=== PATIENT | male | born 1995 | race Caucasian/White ===

== ENCOUNTER 2021-05-04 02:08 | Emergency (ER) | payer OTHER ==
[2021-05-04] MEDS ORDERED: BUPIVACAINE 0.5% PF 10 ML VIAL SUBQ STA (02:42)
--- NOTE | 2021-05-04 03:14 | ED Physician Documentation ---
PD HPI UPPER EXT INJURY - Stated complaint Stated Complaint: RT HAND INJURY - Chief complaint Chief Complaint: Trauma Ext - History obtained from History obtained from: Patient - Additonal information Additional information: Patient is a 25-year-old male, [id number] presenting with right hand injury. Reports occurred earlier today when he "slipped and fell while skateboarding". Reports pain and swelling along the outer, ulnar aspect of his hand.Denies pain at the wrist. He denies head trauma or loss of consciousness. Review of Systems Ten Systems: 10 systems reviewed and negative Constitutional: denies: Fever Cardiac: denies: Chest pain / pressure GI: denies: Abdominal Pain : denies: Dysuria PD PAST MEDICAL HISTORY - Past Medical History Past Medical History: No - Past Surgical History Past Surgical History: Yes HEENT: Tonsil/Adenoidectomy - Present Medications Home Medications: Ambulatory Orders Medication Instructions Recorded Confirmed Acetaminophen [Tylenol] 650 mg PO Q6H PRN #30 tablet 05/04/21 Ibuprofen [Motrin] 800 mg PO Q8H PRN #30 tablet 05/04/21 Oxycodone HCl [Roxicodone] 5 mg PO Q6HR #10 tablet 05/04/21 - Allergies Allergies/Adverse Reactions: Allergies Allergy/AdvReac Type Severity Reaction Status Date / Time No Known Drug Allergies Allergy Verified 05/04/21 02:17 - Social History Does the pt smoke?: No Smoking Status: Never smoker Does the pt drink ETOH?: No Does the pt have substance abuse?: No - Immunizations Immunizations are current?: Yes - POLST Patient has POLST: No PD ED PE NORMAL - General General: Alert and oriented X 3 - HEENT HEENT: Atraumatic - Neck Neck: No JVD - Derm Derm: Normal color, Warm and dry PD ED PE EXPANDED - Extremities Extremities: Deformity, Tenderness, Swelling, Right hand (Soft tissue swelling o zoey the distal aspect of the fifth metacarpal.) Results - Vitals Vitals: Vital Signs - 24 hr 05/04/21 02:10 Temperature 36.6 C Heart Rate 71 Respiratory 14 Rate Blood Pressure 121/70 O2 Saturation 98 Oxygen O2 Source Room air Procedures - General procedure General procedure: Verbal consent obtained for patient prior to performing hematoma block for fracture to distal fifth metacarpal. Area cleaned with alcohol swab prior to injection of 6 mL of ropivacaine 0.5%. Patient reported significant improvement in pain. PD MEDICAL DECISION MAKING - ED course Complexity details: reviewed results, d/w patient ED course: Patient is 25-year-old male presenting with distal fifth metacarpal fracture. Neurovascularly intact. Hematoma block applied in the emergency department. Hand splinted with ulnar gutter. Will have patient follow-up with orthopedic hand surgery. Medication for symptomatic management sent to [facility]. Otherwise clear return precautions and follow-up instructions given prior to discharge. Departure - Departure Disposition: 01 Home, Self Care Clinical Impression: Metacarpal bone fracture Instructions: ED Fx Hand Closed Ch Follow-Up: Tad Nieves MD [Provider Admit Priv/Credential] - Prescriptions: Oxycodone HCl [Roxicodone] 5 mg PO Q6HR #10 tablet Ibuprofen [Motrin] 800 mg PO Q8H PRN #30 tablet PRN Reason: PAIN &/OR FEVER Acetaminophen [Tylenol] 650 mg PO Q6H PRN #30 tablet PRN Reason: PRN PAIN &/OR FEVER Comments: Thank you for allowing us to care for you today at [facility]. Your prescriptions were sent to [facility] in [place]. This evening in the emergency department you were diagnosed with a minimally displaced fracture of your right fifth metacarpal, one of the bones in your hand. It is important that you follow-up with a hand specialist. I have included contact information for Dr. Nieves, please give his office a call first thing Wednesday. Motrin and Tylenol are excellent medications to take for pain control. Ice packs and elevating the extremity are also excellent strategies to decrease swelling and thereby decrease pain. I have prescribed you some stronger pain medication to take as needed. This medication can cause sedation and should not be used if you are operating a motor vehicle, using heavy machinery or you are the sole light technician of young children. It is also habit-forming and you should only take it as needed. If it anytime you have any new or worsening symptoms please not hesitate to return to the emergency department.
[2021-05-04 03:29] VITALS: BP 118/70
--- NOTE | 2021-05-04 07:44 | XRAY Report ---
PROCEDURE: Hand 3 View RT INDICATIONS: roller skating injury/deformity swelling R hand TECHNIQUE: 3 views of the hand(s) acquired. COMPARISON: None FINDINGS: Bones: Minimally displaced in a related fracture of the distal fifth metacarpal. No additional fractu res. No suspicious bony lesions. Soft tissues: No suspicious soft tissue calcifications. IMPRESSION: Mildly displaced and angulated transverse fracture of the distal fifth metacarpal. Agree with preliminary report. Reviewed by: Ashutosh Evans DO on 05/04/2021 6:43 AM [facility] Approved by: Ashutosh Evans DO on 05/04/2021 6:43 AM [facility] Station ID: [id number]
--- NOTE | 2021-05-04 07:46 | XRAY Report ---
PROCEDURE: Hand 2 View RT INDICATIONS: Post splinting TECHNIQUE: 2 views of the hand(s) acquired. COMPARISON: Same-day hand radiographs. FINDINGS: Bones: Overlying splint material from prior examination. Mildly improved alignment of the previously noted mildly displaced and angulated transverse fracture of the distal fifth metacarpal. No new osseo us abnormality. Soft tissues: Soft tissue swelling. IMPRESSION: Mild improvement in alignment of the previously noted transverse mildly displaced and angulated fract ure of the distal fifth metacarpal. Agree with preliminary report. Reviewed by: Ashutosh Evans DO on 05/04/2021 6:44 AM [facility] Approved by: Ashutosh Evans DO on 05/04/2021 6:44 AM [facility] Station ID: [id number]
== END 2021-05-04 03:28 | disposition home or self-care (01) ==
LOC: ED 02:08
DX: S62.366A Nondisplaced fracture of neck of fifth metacarpal bone, right hand, initial encounter for closed fracture (principal); V00.121A Fall from non-in-line roller-skates, initial encounter; Y93.51 Activity, roller skating (inline) and skateboarding; Y92.331 Roller skating rink as the place of occurrence of the external cause
CPT/HCPCS: 29105; 64450

== ENCOUNTER 2021-05-19 08:43 | Outpatient (CLI) | payer OTHER ==
--- NOTE | 2021-05-19 13:11 | XRAY Report ---
PROCEDURE: Hand 3 View RT INDICATIONS: RIGHT HAND PX TECHNIQUE: 3 views of the hand(s) acquired. COMPARISON: 05/04/2021 FINDINGS: Bones: Minimally displaced and mildly angulated fracture of the distal aspect of the fifth metacarpal is stable in appearance compared to prior exams.. Soft tissues: No suspicious soft tissue calcifications. IMPRESSION: Stable alignment of fifth metacarpal fracture. Reviewed by: Izzy Chapman MD, PhD on 05/19/2021 1:10 PM PST Approved by: Izzy Chapman MD, PhD on 05/19/2021 1:10 PM PST Station ID: [id number]
== END 2021-05-19 08:44 | disposition home or self-care (01) ==
LOC: DI.WOS 08:43
PROVIDERS: ATTEND Orthopaedic Surgery
DX: S62.306D Unspecified fracture of fifth metacarpal bone, right hand, subsequent encounter for fracture with routine healing (principal)